=== PATIENT | male | born 1965 | race Asian ===

== ENCOUNTER 2016-12-24 17:41 | Emergency (ER) | payer OTHER ==
[~2016-12-24] VITALS: Ht 170.2 cm; Wt 84.1 kg
[~2016-12-24 17:41] MED LIST: ASPI81 PO; ATOR40TA28 PO; CLOP75 PO; LISI-661 PO; METF500T4 PO; METO-323 PO; RANO500T3 PO; TICA60TA PO
[2016-12-24 18:02] LABS: GLUCOSE,POINT OF CARE 180 MG/DL (70-110)
[2016-12-24 20:29] LABS: APPEARANCE,URINE TURBID (CLEAR); GLUCOSE, URINE (UA) 250 mg/dL (NEGATIVE); KETONES,URINE NEGATIVE (NEGATIVE); LEUKOCYTE ESTERASE ,URINE LARGE (NEGATIVE); OCCULT BLOOD,URINE MODERATE (NEGATIVE); PROTEIN,URINE POS 1+ (NEGATIVE)
[2016-12-24 20:48] LABS: ADD UA MICROSCOPIC YES
[2016-12-24 21:00] LABS: SQUAMOUS EPITHELIAL CELL,UR Moderate /LPF (None Seen); WBC,URINE 51-100 /HPF (0-5)
[2016-12-24 21:08] VITALS: BP 121/81
[2016-12-25 23:09] LABS: GC DNA N.A. AMPLIFY Negative (Negative)
== END 2016-12-24 21:52 | disposition home or self-care (01) ==
LOC: EMS 17:42
DX: N34.2 Other urethritis (principal); E78.00 Pure hypercholesterolemia, unspecified; E11.9 Type 2 diabetes mellitus without complications; I25.2 Old myocardial infarction; I25.10 Atherosclerotic heart disease of native coronary artery without angina pectoris; F17.210 Nicotine dependence, cigarettes, uncomplicated; Z95.0 Presence of cardiac pacemaker; Z95.1 Presence of aortocoronary bypass graft
CPT/HCPCS: 82962; 87086; 87491; 87591; 99284

== ENCOUNTER 2017-01-27 13:00 | Emergency (ER) | payer OTHER ==
[~2017-01-27] VITALS: Ht 165.1 cm; Wt 87.3 kg
[~2017-01-27 13:00] MED LIST changes: -ATOR40TA28 PO; -CLOP75 PO; -LISI-661 PO; -METF500T4 PO; -METO-323 PO; -RANO500T3 PO
[2017-01-27 13:37] LABS: GLUCOSE,POINT OF CARE 212 MG/DL (70-110)
[2017-01-27] MEDS ORDERED: TAMSULOSIN HCL 0.4 MG CAPSULE PO ONE (14:30)
[2017-01-27 14:50] VITALS: BP 136/95
[2017-01-27] MEDS ORDERED: CIPROFLOXACIN HCL 250 MG TABLET PO ONE (15:30)
[2017-01-27 15:58] LABS: GLUCOSE, URINE (UA) NEGATIVE (NEGATIVE); PROTEIN,URINE POS 1+ (NEGATIVE)
[2017-01-27 15:59] LABS: KETONES,URINE NEGATIVE (NEGATIVE); LEUKOCYTE ESTERASE ,URINE LARGE (NEGATIVE)
[2017-01-27 16:00] LABS: ADD UA MICROSCOPIC YES; APPEARANCE,URINE CLOUDY (CLEAR); OCCULT BLOOD,URINE MODERATE (NEGATIVE); SQUAMOUS EPITHELIAL CELL,UR Few /LPF (None Seen); WBC,URINE >100 /HPF (0-5)
== END 2017-01-27 15:28 | disposition home or self-care (01) ==
LOC: EMS 13:01
DX: N39.0 Urinary tract infection, site not specified (principal); N40.0 Benign prostatic hyperplasia without lower urinary tract symptoms; I10 Essential (primary) hypertension; I25.2 Old myocardial infarction; I25.10 Atherosclerotic heart disease of native coronary artery without angina pectoris; E78.00 Pure hypercholesterolemia, unspecified; E11.9 Type 2 diabetes mellitus without complications; F15.90 Other stimulant use, unspecified, uncomplicated; F17.210 Nicotine dependence, cigarettes, uncomplicated; Z95.0 Presence of cardiac pacemaker; Z95.1 Presence of aortocoronary bypass graft; Z79.82 Long term (current) use of aspirin
CPT/HCPCS: 82962; 87086; 99284

== ENCOUNTER 2017-02-11 03:16 | Emergency (ER) | payer OTHER ==
[~2017-02-11] VITALS: Ht 165.1 cm; Wt 84.0 kg
[2017-02-11] MEDS ORDERED: CIPR-278 PO (03:27)
[2017-02-11] MEDS ORDERED: TICA90TA PO (03:27)
[2017-02-11] MEDS ORDERED: TAMS0.4C32 PO (03:27)
[2017-02-11] MEDS ORDERED: TAMSULOSIN HCL 0.4 MG CAPSULE PO ONE (04:15)
[2017-02-11 06:04] LABS: APPEARANCE,URINE CLOUDY (CLEAR); GLUCOSE, URINE (UA) 100 mg/dL (NEGATIVE); KETONES,URINE NEGATIVE (NEGATIVE); LEUKOCYTE ESTERASE ,URINE TRACE (NEGATIVE); OCCULT BLOOD,URINE LARGE (NEGATIVE); PROTEIN,URINE SEE CONFIRM (NEGATIVE)
[2017-02-11 06:10] LABS: ADD UA MICROSCOPIC YES; SULFOSALICYLIC ACID,URINE 2+ (Negative); WBC,URINE 0-2 /HPF (0-5)
[2017-02-11 06:11] LABS: SQUAMOUS EPITHELIAL CELL,UR Moderate /LPF (None Seen)
[2017-02-11 06:18] VITALS: BP 140/87
== END 2017-02-11 06:31 | disposition home or self-care (01) ==
LOC: EMS 03:16
DX: N39.0 Urinary tract infection, site not specified (principal); F17.210 Nicotine dependence, cigarettes, uncomplicated; E11.9 Type 2 diabetes mellitus without complications; E78.00 Pure hypercholesterolemia, unspecified; I10 Essential (primary) hypertension; I25.2 Old myocardial infarction; I25.10 Atherosclerotic heart disease of native coronary artery without angina pectoris; F19.90 Other psychoactive substance use, unspecified, uncomplicated; Z95.0 Presence of cardiac pacemaker; Z95.1 Presence of aortocoronary bypass graft
CPT/HCPCS: 99283; 99406

== ENCOUNTER 2017-05-29 03:52 | Inpatient (IN) | payer OTHER ==
[~2017-05-29] VITALS: Ht 167.6 cm; Wt 83.1 kg
[~2017-05-29 03:52] MED LIST changes: +CIPR-278 PO; +TAMS0.4C32 PO; -TICA60TA PO; +TICA90TA PO
[2017-05-29 04:18] LABS: GLUCOSE,POINT OF CARE 178 MG/DL (70-110)
[2017-05-29] MEDS ORDERED: MORPHINE SULFATE 4 MG/ML SYRINGE IM ONE (04:45)
[2017-05-29] MEDS ORDERED: ONDANSETRON HCL 4 MG/2 ML VIAL IM ONE (04:45)
[2017-05-29] MEDS ORDERED: TAMSULOSIN HCL 0.4 MG CAPSULE PO ONE (04:45)
[2017-05-29 05:42] LABS: APPEARANCE,URINE CLOUDY (CLEAR); GLUCOSE, URINE (UA) NEGATIVE (NEGATIVE); KETONES,URINE NEGATIVE (NEGATIVE); LEUKOCYTE ESTERASE ,URINE SMALL (NEGATIVE); OCCULT BLOOD,URINE TRACE (NEGATIVE); PROTEIN,URINE TRACE (NEGATIVE)
[2017-05-29 05:43] LABS: ADD UA MICROSCOPIC YES
[2017-05-29 05:45] LABS: BASOPHILS % (AUTO) 0.3 % (0.0-2.0); EOSINOPHILS % (AUTO) 1.7 % (1.0-6.0); HEMATOCRIT 42.6 % (41-53); HEMOGLOBIN 14.4 g/dL (13.5-17.5); LYMPHOCYTES # (AUTO) 0.9 K/uL (1.0-4.8); LYMPHOCYTES % (AUTO) 9.7 % (22.0-44.0); MEAN CORPUSCULAR HEMOGLOBIN 29.3 pg (26.0-34.0); MEAN CORPUSCULAR HGB CONC 33.9 G/dL (31.0-37.0); MEAN CORPUSCULAR VOLUME 86 fL (80-100); MONOCYTES # (AUTO) 0.5 K/uL (0.1-1.0); MONOCYTES % (AUTO) 4.9 % (2.0-9.0); NEUTROPHILS # (AUTO) 7.8 K/uL (1.8-7.7); NEUTROPHILS % (AUTO) 83.4 % (40.0-70.0); PLATELET COUNT (AUTO) 297 K/uL (150-450); RED BLOOD CELL COUNT(AUTO) 4.93 MIL/uL (4.50-5.90); RED CELL DISTRIBUTION WIDTH 14.6 % (11.5-14.5); WHITE BLOOD COUNT (AUTO) 9.4 K/uL (4.5-11.0)
[2017-05-29 05:58] LABS: RBC,URINE 0-2 /HPF (0-2); SQUAMOUS EPITHELIAL CELL,UR Few /LPF (None Seen)
[2017-05-29 05:59] LABS: ANION GAP 10 mmol/L (8-16); CALCIUM, TOTAL 9.1 mg/dL (8.8-10.5); CARBON DIOXIDE 25 mmol/L (22-29); CHLORIDE 102 mmol/L (98-107); CREATININE 1.07 mg/dL (0.60-1.30); GLOMERULAR FILTR. RATE CALC > 60 mL/min (>60); POTASSIUM 4.1 mmol/L (3.5-5.1); SODIUM SERUM 137 mmol/L (136-145); UREA NITROGEN, BLOOD 17 mg/dL (7-18)
[2017-05-29] MEDS ORDERED: CefTRIAXone 1 GM/DEXTROSE 50 ML IV ONE (06:00)
[2017-05-29 06:05] LABS: ALANINE AMINOTRANSFERASE 30 U/L (12-78); ALBUMIN 3.6 g/dL (3.4-5.0); ASPARTATE AMINOTRANSFERASE 19 U/L (15-37); BILIRUBIN,TOTAL 0.5 mg/dL (0.1-1.0); TOTAL PROTEIN, SERUM 8.4 g/dL (6.4-8.2)
[2017-05-29 07:05] VITALS: BP 96/55
[2017-05-29] MEDS ORDERED: MAGNESIUM HYDROXIDE SUSPENSION 30 ML UDCUP PO PRN (08:15)
[2017-05-29] MEDS ORDERED: BISACODYL 10 MG RECTAL RECTAL SUPPOSITORY PR PRN (08:15)
[2017-05-29] MEDS ORDERED: HYDROCODONE/ACETAMINOPHEN 5-325 MG TABLET PO PRN (08:15)
[2017-05-29] MEDS ORDERED: ONDANSETRON HCL 4 MG/2 ML VIAL IVP PRN (08:15)
[2017-05-29] MEDS ORDERED: ZOLPIDEM TARTRATE 5 MG TABLET PO PRN (08:15)
[2017-05-29] MEDS ORDERED: ACETAMINOPHEN 325 MG TABLET PO PRN (08:15)
[2017-05-29] MEDS: DOCUSATE SODIUM 100 MG CAPSULE PO SCH ×2 (09:00→20:17)
[2017-05-29] MEDS: PANTOPRAZOLE SODIUM 40 MG DR TABLET PO SCH (09:00)
[2017-05-29] MEDS ORDERED: INFLUENZA VIRUS VACCINE QVS 2017-18 (3YR+)/PF 60 MCG/0.5 ML SYRINGE IM ONE (11:15)
[2017-05-29] MEDS ORDERED: PNEUMOCOCCAL VACCINE POLYVALENT 0.5 ML VIAL [PPSV23] IM ONE (11:15)
[2017-05-29 11:23] VITALS: BP 100/59
[2017-05-29 11:53] LABS: GLUCOSE,POINT OF CARE 133 MG/DL (70-110)
[2017-05-29] MEDS: MORPHINE SULFATE 2 MG/ML SYRINGE IVP PRN (12:35)
[2017-05-29 15:39] VITALS: BP 125/69
[2017-05-29] MEDS: HEPARIN SODIUM,PORCINE 5,000 UNITS/ML VIAL SQ SCH (15:41)
[2017-05-29] MEDS: ASPIRIN 81 MG CHEWABLE TABLET PO SCH (15:41)
[2017-05-29] MEDS: FINASTERIDE 5 MG TABLET PO SCH (18:41)
[2017-05-29 19:27] VITALS: BP 100/60
[2017-05-29 20:18] LABS: GLUCOSE,POINT OF CARE 143 MG/DL (70-110)
[2017-05-30] VITALS (7 sets, daily range): BP systolic 95–124; BP diastolic 50–79
[2017-05-30 07:05] LABS: BASOPHILS # (AUTO) 0.02 K/uL (0.00-0.20); BASOPHILS % (AUTO) 0.4 % (0.0-2.0); EOSINOPHILS # (AUTO) 0.21 K/uL (0.00-0.70); EOSINOPHILS % (AUTO) 2.96 % (1.0-6.0); HEMATOCRIT 44.7 % (41-53); HEMOGLOBIN 14.5 g/dL (13.5-17.5); LYMPHOCYTES # (AUTO) 1.7 K/uL (1.0-4.8); LYMPHOCYTES % (AUTO) 23.8 % (22.0-44.0); MEAN CORPUSCULAR HEMOGLOBIN 28.6 pg (26.0-34.0); MEAN CORPUSCULAR HGB CONC 32.5 G/dL (31.0-37.0); MEAN CORPUSCULAR VOLUME 88 fL (80-100); MONOCYTES # (AUTO) 0.6 K/uL (0.1-1.0); NEUTROPHILS # (AUTO) 4.6 K/uL (1.8-7.7); NEUTROPHILS % (AUTO) 64.9 % (40.0-70.0); PLATELET COUNT (AUTO) 282 K/uL (150-450); RED BLOOD CELL COUNT(AUTO) 5.08 MIL/uL (4.50-5.90); RED CELL DISTRIBUTION WIDTH 14.6 % (11.5-14.5); WHITE BLOOD COUNT (AUTO) 7.2 K/uL (4.5-11.0)
[2017-05-30 07:49] LABS: ALANINE AMINOTRANSFERASE 19 U/L (12-78); ALBUMIN 3.4 g/dL (3.4-5.0); ANION GAP 9 mmol/L (8-16); ASPARTATE AMINOTRANSFERASE 16 U/L (15-37); BILIRUBIN,TOTAL 0.3 mg/dL (0.1-1.0); CALCIUM, TOTAL 9.1 mg/dL (8.8-10.5); CARBON DIOXIDE 27 mmol/L (22-29); CHLORIDE 102 mmol/L (98-107); CREATININE 0.93 mg/dL (0.60-1.30); GLOMERULAR FILTR. RATE CALC > 60 mL/min (>60); POTASSIUM 4.1 mmol/L (3.5-5.1); SODIUM SERUM 138 mmol/L (136-145); TOTAL PROTEIN, SERUM 8.1 g/dL (6.4-8.2); UREA NITROGEN, BLOOD 19 mg/dL (7-18)
[2017-05-30] MEDS: HEPARIN SODIUM,PORCINE 5,000 UNITS/ML VIAL SQ SCH ×5 (07:58→23:52)
[2017-05-30] MEDS: PANTOPRAZOLE SODIUM 40 MG DR TABLET PO SCH (07:58)
[2017-05-30] MEDS: FINASTERIDE 5 MG TABLET PO SCH (07:58)
[2017-05-30] MEDS: DOCUSATE SODIUM 100 MG CAPSULE PO SCH ×2 (07:58→20:01)
[2017-05-30] MEDS: ASPIRIN 81 MG CHEWABLE TABLET PO SCH (07:58)
[2017-05-30] MEDS: TAMSULOSIN HCL 0.4 MG CAPSULE PO SCH (08:04)
[2017-05-30] MEDS: LISINOPRIL 5 MG TABLET PO SCH (09:30)
[2017-05-30] MEDS: CARVEDILOL 3.125 MG TABLET PO SCH ×2 (09:45→20:01)
[2017-05-30] MEDS ORDERED: FUROSEMIDE 20 MG TABLET PO ONE (11:45)
[2017-05-30 12:03] LABS: GLUCOSE,POINT OF CARE 134 MG/DL (70-110)
[2017-05-31 00:18] VITALS: BP 124/79
[2017-05-31 04:43] VITALS: BP 107/68
[2017-05-31 06:54] LABS: BASOPHILS % (AUTO) 0.5 % (0.0-2.0); EOSINOPHILS % (AUTO) 2.6 % (1.0-6.0); HEMATOCRIT 46.4 % (41-53); HEMOGLOBIN 15.7 g/dL (13.5-17.5); LYMPHOCYTES # (AUTO) 1.5 K/uL (1.0-4.8); LYMPHOCYTES % (AUTO) 18.4 % (22.0-44.0); MEAN CORPUSCULAR HEMOGLOBIN 29.7 pg (26.0-34.0); MEAN CORPUSCULAR HGB CONC 33.8 G/dL (31.0-37.0); MEAN CORPUSCULAR VOLUME 88 fL (80-100); MONOCYTES # (AUTO) 0.6 K/uL (0.1-1.0); MONOCYTES % (AUTO) 7.4 % (2.0-9.0); NEUTROPHILS # (AUTO) 5.9 K/uL (1.8-7.7); NEUTROPHILS % (AUTO) 71.1 % (40.0-70.0); PLATELET COUNT (AUTO) 319 K/uL (150-450); RED BLOOD CELL COUNT(AUTO) 5.27 MIL/uL (4.50-5.90); RED CELL DISTRIBUTION WIDTH 14.2 % (11.5-14.5); WHITE BLOOD COUNT (AUTO) 8.3 K/uL (4.5-11.0)
[2017-05-31 06:55] LABS: ALANINE AMINOTRANSFERASE 27 U/L (12-78); ALBUMIN 3.6 g/dL (3.4-5.0); ANION GAP 9 mmol/L (8-16); ASPARTATE AMINOTRANSFERASE 16 U/L (15-37); BILIRUBIN,TOTAL 0.5 mg/dL (0.1-1.0); CALCIUM, TOTAL 9.4 mg/dL (8.8-10.5); CARBON DIOXIDE 27 mmol/L (22-29); CHLORIDE 101 mmol/L (98-107); CREATININE 1.12 mg/dL (0.60-1.30); GLOMERULAR FILTR. RATE CALC > 60 mL/min (>60); POTASSIUM 4.3 mmol/L (3.5-5.1); SODIUM SERUM 137 mmol/L (136-145); TOTAL PROTEIN, SERUM 8.2 g/dL (6.4-8.2); UREA NITROGEN, BLOOD 20 mg/dL (7-18)
[2017-05-31 07:20] VITALS: BP 126/81
[2017-05-31] MEDS: HEPARIN SODIUM,PORCINE 5,000 UNITS/ML VIAL SQ SCH ×3 (08:00→23:55)
[2017-05-31] MEDS: CARVEDILOL 6.25 MG TABLET PO SCH ×2 (09:00→20:14)
[2017-05-31] MEDS: DOCUSATE SODIUM 100 MG CAPSULE PO SCH ×2 (09:00→20:14)
[2017-05-31] MEDS ORDERED: RINGERS SOLUTION,LACTATED 1,000 ML IV ONE ×2 (10:49→11:15)
[2017-05-31] MEDS ORDERED: WATER FOR IRRIGATION,STERILE 3,000 ML IRRIG ONE (11:42)
[2017-05-31] MEDS ORDERED: BUPIVACAINE HCL/PF 0.5% 30 ML VIAL ONE (11:42)
[2017-05-31] MEDS ORDERED: LIDOCAINE HCL/PF 1% 30 ML VIAL ONE (11:42)
[2017-05-31] MEDS ORDERED: MIDAZOLAM HCL 2 MG/2 ML VIAL IVP ONE (12:00)
[2017-05-31] MEDS ORDERED: PROPOFOL 1% 20 ML VIAL IVP ONE (12:00)
[2017-05-31] MEDS ORDERED: GLYCOPYRROLATE 0.2 MG/ML VIAL IM ONE (12:00)
[2017-05-31] MEDS ORDERED: EPINEPHrine 1:1,000 [1 MG/ML] AMP IM ONE (12:00)
[2017-05-31] MEDS ORDERED: LIDOCAINE HCL/PF 2% 5 ML VIAL INJ ONE (12:00)
[2017-05-31] MEDS ORDERED: PHENYLEPHRINE HCL 10 MG/ML VIAL IVP ONE (12:00)
[2017-05-31] MEDS ORDERED: FentaNYL CITRATE-PF 100 MCG/2 ML VIAL IVP ONE (12:00)
[2017-05-31] MEDS ORDERED: SUCCINYLCHOLINE CHLORIDE 20 MG/ML 10 ML VIAL IVP ONE (12:00)
[2017-05-31] MEDS ORDERED: CALCIUM CHLORIDE 100 MG/ML 10 ML SYRINGE IVP ONE (12:00)
[2017-05-31] MEDS ORDERED: ONDANSETRON HCL 4 MG/2 ML VIAL IVP ONE (12:00)
[2017-05-31] MEDS ORDERED: HYDROmorphone 2 MG/ML SYRINGE IVP PRN (13:00)
[2017-05-31] MEDS ORDERED: MEPERIDINE-PF 25 MG/ML SYRINGE IVP PRN (13:00)
[2017-05-31] MEDS ORDERED: FentaNYL CITRATE-PF 100 MCG/2 ML VIAL IVP PRN (13:00)
[2017-05-31] MEDS: TAMSULOSIN HCL 0.4 MG CAPSULE PO SCH (15:03)
[2017-05-31] MEDS: PANTOPRAZOLE SODIUM 40 MG DR TABLET PO SCH (15:04)
[2017-05-31] MEDS: LISINOPRIL 5 MG TABLET PO SCH (15:04)
[2017-05-31] MEDS: FINASTERIDE 5 MG TABLET PO SCH (15:04)
[2017-05-31] MEDS: OXYGEN THERAPY IH SCH ×2 (15:04→20:00)
[2017-05-31] MEDS: ASPIRIN 81 MG CHEWABLE TABLET PO SCH (15:04)
[2017-05-31 15:51] VITALS: BP 128/76
[2017-05-31 20:27] VITALS: BP 101/78
[2017-05-31 23:35] VITALS: BP 98/64
[2017-05-31] MEDS: MORPHINE SULFATE 2 MG/ML SYRINGE IVP PRN (23:57)
[2017-06-01 05:15] VITALS: BP 103/66
[2017-06-01 06:53] LABS: BASOPHILS # (AUTO) 0.04 K/uL (0.00-0.20); BASOPHILS % (AUTO) 0.4 % (0.0-2.0); EOSINOPHILS % (AUTO) 2.21 % (1.0-6.0); HEMATOCRIT 43.8 % (41-53); HEMOGLOBIN 14.4 g/dL (13.5-17.5); LYMPHOCYTES # (AUTO) 1.4 K/uL (1.0-4.8); LYMPHOCYTES % (AUTO) 15.7 % (22.0-44.0); MEAN CORPUSCULAR HEMOGLOBIN 28.8 pg (26.0-34.0); MEAN CORPUSCULAR HGB CONC 32.9 G/dL (31.0-37.0); MEAN CORPUSCULAR VOLUME 88 fL (80-100); MONOCYTES # (AUTO) 0.7 K/uL (0.1-1.0); MONOCYTES % (AUTO) 7.9 % (2.0-9.0); NEUTROPHILS # (AUTO) 6.6 K/uL (1.8-7.7); NEUTROPHILS % (AUTO) 73.8 % (40.0-70.0); PLATELET COUNT (AUTO) 276 K/uL (150-450); RED BLOOD CELL COUNT(AUTO) 4.99 MIL/uL (4.50-5.90); RED CELL DISTRIBUTION WIDTH 14.4 % (11.5-14.5); WHITE BLOOD COUNT (AUTO) 8.9 K/uL (4.5-11.0)
[2017-06-01 07:21] LABS: ALANINE AMINOTRANSFERASE 21 U/L (12-78); ALBUMIN 3.4 g/dL (3.4-5.0); ANION GAP 8 mmol/L (8-16); ASPARTATE AMINOTRANSFERASE 13 U/L (15-37); BILIRUBIN,TOTAL 0.4 mg/dL (0.1-1.0); CARBON DIOXIDE 28 mmol/L (22-29); CHLORIDE 99 mmol/L (98-107); CREATININE 1.08 mg/dL (0.60-1.30); GLOMERULAR FILTR. RATE CALC > 60 mL/min (>60); POTASSIUM 4.3 mmol/L (3.5-5.1); SODIUM SERUM 135 mmol/L (136-145); TOTAL PROTEIN, SERUM 8.1 g/dL (6.4-8.2); UREA NITROGEN, BLOOD 24 mg/dL (7-18)
[2017-06-01 07:29] VITALS: BP 109/71
[2017-06-01] MEDS: OXYGEN THERAPY IH SCH (08:00)
[2017-06-01] MEDS: HEPARIN SODIUM,PORCINE 5,000 UNITS/ML VIAL SQ SCH ×2 (08:00→16:00)
[2017-06-01] MEDS: CARVEDILOL 6.25 MG TABLET PO SCH (09:35)
[2017-06-01] MEDS: TAMSULOSIN HCL 0.4 MG CAPSULE PO SCH (09:35)
[2017-06-01] MEDS: ASPIRIN 81 MG CHEWABLE TABLET PO SCH (09:35)
[2017-06-01] MEDS: FINASTERIDE 5 MG TABLET PO SCH (09:35)
[2017-06-01] MEDS: DOCUSATE SODIUM 100 MG CAPSULE PO SCH (09:35)
[2017-06-01] MEDS: LISINOPRIL 5 MG TABLET PO SCH (09:35)
[2017-06-01] MEDS: PANTOPRAZOLE SODIUM 40 MG DR TABLET PO SCH (09:36)
[2017-06-01 11:07] VITALS: BP 96/60
[2017-06-01 15:16] VITALS: BP 97/58
[2017-06-01] MEDS ORDERED: CARV6.2579 PO (16:22)
[2017-06-01] MEDS ORDERED: LISI-660 PO (16:23)
[2017-06-01] MEDS ORDERED: FINA5TAB41 PO (16:24)
[2017-06-01] MEDS ORDERED: CARVEDILOL 3.125 MG TABLET PO SCH (21:00)
== END 2017-06-01 18:26 | disposition home or self-care (01) | DRG 446 ==
LOC: EMS 03:54 → 6N 05:30 → 5N 05-30 14:42
PROVIDERS: ADMIT Internal Medicine; ATTEND Internal Medicine
PROC: 0T7D8ZZ Dilation of Urethra, Via Natural or Artificial Opening Endoscopic (ICD-10-PCS; 2017-05-31)
PROC: 0VTTXZZ Resection of Prepuce, External Approach (ICD-10-PCS; 2017-05-31)
PROC: 0TND0ZZ Release Urethra, Open Approach (ICD-10-PCS; principal; 2017-05-31 12:30)
DX: N35.9 Urethral stricture, unspecified (principal); I11.0 Hypertensive heart disease with heart failure; I50.22 Chronic systolic (congestive) heart failure; N47.1 Phimosis; I49.5 Sick sinus syndrome; I25.10 Atherosclerotic heart disease of native coronary artery without angina pectoris; Z95.0 Presence of cardiac pacemaker; N48.1 Balanitis; E78.00 Pure hypercholesterolemia, unspecified; E11.9 Type 2 diabetes mellitus without complications; N40.1 Benign prostatic hyperplasia with lower urinary tract symptoms; R33.8 Other retention of urine; F15.10 Other stimulant abuse, uncomplicated; F17.210 Nicotine dependence, cigarettes, uncomplicated; E78.5 Hyperlipidemia, unspecified; Z80.9 Family history of malignant neoplasm, unspecified; N47.8 Other disorders of prepuce; I25.2 Old myocardial infarction; Z87.440 Personal history of urinary (tract) infections; Z95.1 Presence of aortocoronary bypass graft; Z95.5 Presence of coronary angioplasty implant and graft; Z79.899 Other long term (current) drug therapy; Z79.82 Long term (current) use of aspirin; Z28.21 Immunization not carried out because of patient refusal
CPT/HCPCS: 51702; 80307; 82962; 83735; 87086; 87147; 88304; 93005; 93306; 96365; 96372; 99285; J0171; J0330; J0690; J0696; J1644; J2250; J2270; J2370; J2405; J2704; J3010; J3490; J7120

== ENCOUNTER 2017-07-22 14:47 | Emergency (ER) | payer SELFPAY ==
[~2017-07-22] VITALS: Ht 165.1 cm; Wt 79.5 kg
[~2017-07-22 14:47] MED LIST changes: +CARV6.2579 PO; -CIPR-278 PO; +FINA5TAB41 PO; +LISI-660 PO
[2017-07-22 16:18] LABS: APPEARANCE,URINE TURBID (CLEAR); BILIRUBIN,URINE NEGATIVE (NEGATIVE); GLUCOSE, URINE (UA) NEGATIVE (NEGATIVE); KETONES,URINE NEGATIVE (NEGATIVE); LEUKOCYTE ESTERASE ,URINE MODERATE (NEGATIVE); NITRATE,URINE NEGATIVE (NEGATIVE); OCCULT BLOOD,URINE MODERATE (NEGATIVE); PROTEIN,URINE SEE CONFIRM (NEGATIVE)
[2017-07-22 16:25] LABS: SULFOSALICYLIC ACID,URINE Trace (Negative)
[2017-07-22 16:27] LABS: BACTERIA,URINE Many /HPF (None Seen); SQUAMOUS EPITHELIAL CELL,UR Few /LPF (None Seen); WBC,URINE 26-50 /HPF (0-5)
[2017-07-22 16:28] LABS: TRIPLE PHOSPHATE CRYSTAL,UR Moderate /LPF (None Seen)
[2017-07-22] MEDS ORDERED: TAMSULOSIN HCL 0.4 MG CAPSULE PO ONE (19:30)
[2017-07-22] MEDS ORDERED: CIPROFLOXACIN HCL 250 MG TABLET PO ONE (19:30)
[2017-07-22 21:23] VITALS: BP 121/81
== END 2017-07-22 21:26 | disposition home or self-care (01) ==
LOC: EMS 14:48
DX: T83.011A Breakdown (mechanical) of indwelling urethral catheter, initial encounter (principal); N39.0 Urinary tract infection, site not specified; I10 Essential (primary) hypertension; E78.00 Pure hypercholesterolemia, unspecified; E11.9 Type 2 diabetes mellitus without complications; I25.10 Atherosclerotic heart disease of native coronary artery without angina pectoris; F15.90 Other stimulant use, unspecified, uncomplicated; F17.210 Nicotine dependence, cigarettes, uncomplicated
CPT/HCPCS: 51705; 87086; 99284

== ENCOUNTER 2017-09-08 17:56 | Emergency (ER) | payer SELFPAY ==
[~2017-09-08] VITALS: Ht 165.1 cm; Wt 75.0 kg
[2017-09-08 18:53] LABS: EOSINOPHILS % (AUTO) 5.1 % (1.0-6.0); HEMATOCRIT 41.1 % (41-53); HEMOGLOBIN 14.1 g/dL (13.5-17.5); LYMPHOCYTES # (AUTO) 1.5 K/uL (1.0-4.8); LYMPHOCYTES % (AUTO) 16.3 % (22.0-44.0); MEAN CORPUSCULAR HEMOGLOBIN 29.9 pg (26.0-34.0); MEAN CORPUSCULAR HGB CONC 34.4 G/dL (31.0-37.0); MEAN CORPUSCULAR VOLUME 87 fL (80-100); MONOCYTES # (AUTO) 0.6 K/uL (0.1-1.0); MONOCYTES % (AUTO) 6.7 % (2.0-9.0); NEUTROPHILS # (AUTO) 6.5 K/uL (1.8-7.7); NEUTROPHILS % (AUTO) 70.9 % (40.0-70.0); PLATELET COUNT (AUTO) 292 K/uL (150-450); RED BLOOD CELL COUNT(AUTO) 4.72 MIL/uL (4.50-5.90); RED CELL DISTRIBUTION WIDTH 15.4 % (11.5-14.5)
[2017-09-08 19:08] LABS: ANION GAP 12 mmol/L (8-16); CALCIUM, TOTAL 8.4 mg/dL (8.8-10.5); CARBON DIOXIDE 24 mmol/L (22-29); CHLORIDE 103 mmol/L (98-107); CREATININE 0.95 mg/dL (0.60-1.30); GLOMERULAR FILTR. RATE CALC > 60 mL/min (>60); GLUCOSE,RANDOM 140 mg/dL (70-110); POTASSIUM 3.9 mmol/L (3.5-5.1); SODIUM SERUM 139 mmol/L (136-145); UREA NITROGEN, BLOOD 17 mg/dL (7-18)
[2017-09-08 19:13] LABS: ALANINE AMINOTRANSFERASE 26 U/L (12-78); ALBUMIN 3.6 g/dL (3.4-5.0); ALKALINE PHOSPHATASE 97 U/L (46-116); BILIRUBIN,TOTAL 0.3 mg/dL (0.1-1.0); LIPASE 82 U/L (73-393); TOTAL PROTEIN, SERUM 7.9 g/dL (6.4-8.2)
[2017-09-08] MEDS ORDERED: TICAGRELOR 90 MG TABLET PO ONE (19:15)
[2017-09-08 19:20] LABS: B-TYPE NATRIURETIC PEPTIDE 254 pg/mL (0-100)
[2017-09-08 19:32] LABS: ASPARTATE AMINOTRANSFERASE 23 U/L (15-37)
[2017-09-08 22:13] LABS: GLUCOSE,POINT OF CARE 110 MG/DL (70-110)
[2017-09-09] VITALS: BP 127/76
== END 2017-09-09 00:03 | disposition home or self-care (01) ==
LOC: EMS 17:58
DX: R07.9 Chest pain, unspecified (principal); I25.10 Atherosclerotic heart disease of native coronary artery without angina pectoris; E11.9 Type 2 diabetes mellitus without complications; E78.00 Pure hypercholesterolemia, unspecified; I10 Essential (primary) hypertension; I25.2 Old myocardial infarction; F17.210 Nicotine dependence, cigarettes, uncomplicated; F19.90 Other psychoactive substance use, unspecified, uncomplicated; Z79.82 Long term (current) use of aspirin; Z95.0 Presence of cardiac pacemaker
CPT/HCPCS: 82962; 93005; 99285

== ENCOUNTER 2018-07-30 03:45 | Emergency (ER) | payer MEDICAID ==
[~2018-07-30] VITALS: Ht 165.1 cm; Wt 86.4 kg
[2018-07-30 04:08] LABS: GLUCOSE,POINT OF CARE 91 MG/DL (70-110)
[2018-07-30 04:30] VITALS: BP 124/71
[2018-07-30] MEDS ORDERED: AMOX TR/POT CLAV 875 MG/125 MG TABLET PO ONE (04:45)
[2018-07-30] MEDS ORDERED: BACITRACIN 0.9 GM PACKET OINTMENT TP ONE (04:45)
[2018-07-30] MEDS ORDERED: FURO40 PO (21:52)
[2018-07-30] MEDS ORDERED: METF-960 PO (21:52)
[2018-07-30] MEDS ORDERED: ATOR40TA28 PO (21:52)
== END 2018-07-30 05:20 | disposition home or self-care (01) ==
LOC: EMS 03:45
DX: T83.510A Infection and inflammatory reaction due to cystostomy catheter, initial encounter (principal); E11.9 Type 2 diabetes mellitus without complications; E78.00 Pure hypercholesterolemia, unspecified; I10 Essential (primary) hypertension; I25.10 Atherosclerotic heart disease of native coronary artery without angina pectoris; I25.2 Old myocardial infarction; F17.210 Nicotine dependence, cigarettes, uncomplicated; F15.90 Other stimulant use, unspecified, uncomplicated; Z95.0 Presence of cardiac pacemaker; Z79.82 Long term (current) use of aspirin; Z79.899 Other long term (current) drug therapy; Y73.2 Prosthetic and other implants, materials and accessory gastroenterology and urology devices associated with adverse incidents

== ENCOUNTER 2018-07-30 21:41 | Emergency (ER) | payer MEDICAID ==
[~2018-07-30] VITALS: Ht 165.1 cm; Wt 75.0 kg
[2018-07-30] MEDS ORDERED: METF-960 PO (21:52)
[2018-07-30] MEDS ORDERED: ATOR40TA28 PO (21:52)
[2018-07-30] MEDS ORDERED: FURO40 PO (21:52)
[2018-07-30 21:59] LABS: GLUCOSE,POINT OF CARE 114 MG/DL (70-110)
[2018-07-30 22:25] VITALS: BP 113/62
[2018-07-30] MEDS ORDERED: NAPROXEN 250 MG TABLET PO ONE (23:15)
== END 2018-07-30 23:25 | disposition home or self-care (01) ==
LOC: EMS 21:42
DX: M79.601 Pain in right arm (principal); E78.00 Pure hypercholesterolemia, unspecified; E11.9 Type 2 diabetes mellitus without complications; I25.10 Atherosclerotic heart disease of native coronary artery without angina pectoris; I10 Essential (primary) hypertension; I25.2 Old myocardial infarction; F17.210 Nicotine dependence, cigarettes, uncomplicated; F15.90 Other stimulant use, unspecified, uncomplicated; Z95.0 Presence of cardiac pacemaker; Z79.899 Other long term (current) drug therapy; Z79.82 Long term (current) use of aspirin; Z79.84 Long term (current) use of oral hypoglycemic drugs
CPT/HCPCS: 93005

== ENCOUNTER 2018-10-24 06:14 | Emergency (ER) | payer MEDICAID, OTHER ==
[~2018-10-24] VITALS: Ht 165.1 cm; Wt 75.0 kg
[~2018-10-24 06:14] MED LIST changes: +ATOR40TA28 PO; -FINA5TAB41 PO; +FURO40 PO; -LISI-660 PO; +METF-960 PO; -TAMS0.4C32 PO; -TICA90TA PO
[2018-10-24] MEDS ORDERED: IODIXANOL 320 MG/ML 50 ML VIAL ONE (10:25)
[2018-10-24] MEDS ORDERED: LIDOCAINE/PF 1% 5 ML VIAL ONE (10:26)
[2018-10-24] MEDS ORDERED: LEVOFLOXACIN 500 MG TABLET PO ONE (12:15)
[2018-10-24 12:30] VITALS: BP 104/54
== END 2018-10-24 12:47 | disposition home or self-care (01) ==
LOC: EMS 06:16
DX: T83.090A Other mechanical complication of cystostomy catheter, initial encounter (principal); N39.0 Urinary tract infection, site not specified; M25.561 Pain in right knee; M25.562 Pain in left knee; M25.551 Pain in right hip; M25.552 Pain in left hip; I25.10 Atherosclerotic heart disease of native coronary artery without angina pectoris; E11.9 Type 2 diabetes mellitus without complications; E78.00 Pure hypercholesterolemia, unspecified; I10 Essential (primary) hypertension; I25.2 Old myocardial infarction; F17.210 Nicotine dependence, cigarettes, uncomplicated; F19.90 Other psychoactive substance use, unspecified, uncomplicated; Z95.0 Presence of cardiac pacemaker; Z79.82 Long term (current) use of aspirin; Z79.899 Other long term (current) drug therapy; Z79.84 Long term (current) use of oral hypoglycemic drugs
CPT/HCPCS: 36245; 76000; 81002; 99244; 99284; C1769; C1887; J3490; Q9967

== ENCOUNTER 2019-01-13 10:27 | Emergency (ER) | payer OTHER ==
[~2019-01-13] VITALS: Ht 165.1 cm; Wt 75.0 kg
[2019-01-13 10:43] LABS: GLUCOSE,POINT OF CARE 140 MG/DL (70-110)
[2019-01-13 12:13] LABS: APPEARANCE,URINE TURBID (CLEAR); BILIRUBIN,URINE NEGATIVE (NEGATIVE); GLUCOSE, URINE (UA) NEGATIVE (NEGATIVE); KETONES,URINE NEGATIVE (NEGATIVE); LEUKOCYTE ESTERASE ,URINE LARGE (NEGATIVE); NITRATE,URINE POSITIVE (NEGATIVE); OCCULT BLOOD,URINE MODERATE (NEGATIVE); PROTEIN,URINE SEE CONFIRM (NEGATIVE)
[2019-01-13 12:28] LABS: SULFOSALICYLIC ACID,URINE 3+ (Negative)
[2019-01-13 12:30] LABS: BACTERIA,URINE Moderate /HPF (None Seen); SQUAMOUS EPITHELIAL CELL,UR Rare /LPF (None Seen); WBC,URINE Full Field /HPF (0-5)
[2019-01-13] MEDS ORDERED: SULFAMETHOX/TRIMETH DS 800-160 MG/TABLET PO ONE (12:30)
[2019-01-13 13:27] VITALS: BP 132/75
== END 2019-01-13 13:30 | disposition home or self-care (01) ==
LOC: EMS 10:30
DX: T83.028A Displacement of other urinary catheter, initial encounter (principal); N39.0 Urinary tract infection, site not specified; I25.10 Atherosclerotic heart disease of native coronary artery without angina pectoris; E11.9 Type 2 diabetes mellitus without complications; I10 Essential (primary) hypertension; E78.00 Pure hypercholesterolemia, unspecified; I25.2 Old myocardial infarction; Z95.0 Presence of cardiac pacemaker; Z79.84 Long term (current) use of oral hypoglycemic drugs; Z79.899 Other long term (current) drug therapy; Z79.82 Long term (current) use of aspirin
CPT/HCPCS: 87086

== ENCOUNTER 2019-01-17 23:57 | Emergency (ER) | payer OTHER ==
[~2019-01-17] VITALS: Ht 165.1 cm; Wt 75.0 kg
[2019-01-18 00:59] LABS: GLUCOSE,POINT OF CARE 173 MG/DL (70-110)
[2019-01-18 01:25] LABS: APPEARANCE,URINE TURBID (CLEAR); GLUCOSE, URINE (UA) 250 mg/dL (NEGATIVE); KETONES,URINE NEGATIVE (NEGATIVE); LEUKOCYTE ESTERASE ,URINE LARGE (NEGATIVE); NITRATE,URINE NEGATIVE (NEGATIVE); OCCULT BLOOD,URINE TRACE (NEGATIVE); PH,URINE 8.5 (5.0-8.0); PROTEIN,URINE SEE CONFIRM (NEGATIVE)
[2019-01-18 01:28] LABS: BILIRUBIN,URINE PRELIM. POSITIVE (NEGATIVE)
[2019-01-18 01:34] LABS: BACTERIA,URINE Few /HPF (None Seen); RBC,URINE 0-2 /HPF (0-2); SQUAMOUS EPITHELIAL CELL,UR Rare /LPF (None Seen); TRIPLE PHOSPHATE CRYSTAL,UR Moderate /LPF (None Seen)
[2019-01-18 01:35] LABS: SULFOSALICYLIC ACID,URINE 2+ (Negative)
[2019-01-18 03:00] VITALS: BP 116/82
== END 2019-01-18 03:49 | disposition home or self-care (01) ==
LOC: EMS 23:58
DX: T83.198A Other mechanical complication of other urinary devices and implants, initial encounter (principal); E11.9 Type 2 diabetes mellitus without complications; I10 Essential (primary) hypertension; E78.00 Pure hypercholesterolemia, unspecified; I25.2 Old myocardial infarction; I25.10 Atherosclerotic heart disease of native coronary artery without angina pectoris; Z95.0 Presence of cardiac pacemaker; Z79.899 Other long term (current) drug therapy; Z79.84 Long term (current) use of oral hypoglycemic drugs; Z79.82 Long term (current) use of aspirin
CPT/HCPCS: 87086

== ENCOUNTER 2019-01-18 20:43 | Emergency (ER) | payer OTHER ==
[~2019-01-18] VITALS: Ht 165.1 cm; Wt 75.0 kg
[2019-01-18 21:00] LABS: GLUCOSE,POINT OF CARE 114 MG/DL (70-110)
[2019-01-18 21:29] VITALS: BP 133/79
== END 2019-01-18 22:21 | disposition home or self-care (01) ==
LOC: EMS 20:45
DX: T83.511A Infection and inflammatory reaction due to indwelling urethral catheter, initial encounter (principal); N39.0 Urinary tract infection, site not specified; R31.9 Hematuria, unspecified; I10 Essential (primary) hypertension; E78.00 Pure hypercholesterolemia, unspecified; E11.9 Type 2 diabetes mellitus without complications; I25.10 Atherosclerotic heart disease of native coronary artery without angina pectoris; I25.2 Old myocardial infarction; Z79.82 Long term (current) use of aspirin

== ENCOUNTER 2019-02-08 13:54 | Emergency (ER) | payer OTHER ==
[~2019-02-08] VITALS: Ht 162.6 cm; Wt 75.0 kg
[2019-02-08 14:11] LABS: GLUCOSE,POINT OF CARE 128 MG/DL (70-110)
[2019-02-08 15:01] VITALS: BP 131/87
== END 2019-02-08 15:23 | disposition home or self-care (01) ==
LOC: EMS 13:55
DX: T83.198A Other mechanical complication of other urinary devices and implants, initial encounter (principal); F41.9 Anxiety disorder, unspecified; R00.0 Tachycardia, unspecified; I25.10 Atherosclerotic heart disease of native coronary artery without angina pectoris; E11.9 Type 2 diabetes mellitus without complications; E78.00 Pure hypercholesterolemia, unspecified; I10 Essential (primary) hypertension; I25.2 Old myocardial infarction; Z95.0 Presence of cardiac pacemaker; Z79.82 Long term (current) use of aspirin; Z79.84 Long term (current) use of oral hypoglycemic drugs; Z79.899 Other long term (current) drug therapy; Y84.6 Urinary catheterization as the cause of abnormal reaction of the patient, or of later complication, without mention of misadventure at the time of the procedure

== ENCOUNTER 2019-04-05 08:09 | Emergency (ER) | payer OTHER ==
[~2019-04-05] VITALS: Ht 165.1 cm; Wt 75.0 kg
[2019-04-05 09:40] VITALS: BP 122/82
== END 2019-04-05 09:46 | disposition home or self-care (01) ==
LOC: EMS 08:10
DX: T83.198A Other mechanical complication of other urinary devices and implants, initial encounter (principal); E11.9 Type 2 diabetes mellitus without complications; E78.00 Pure hypercholesterolemia, unspecified; I10 Essential (primary) hypertension; I25.10 Atherosclerotic heart disease of native coronary artery without angina pectoris; I25.2 Old myocardial infarction; Z95.0 Presence of cardiac pacemaker; Z98.890 Other specified postprocedural states; Y84.6 Urinary catheterization as the cause of abnormal reaction of the patient, or of later complication, without mention of misadventure at the time of the procedure

== ENCOUNTER 2019-12-11 16:13 | Emergency (ER) | payer OTHER ==
[~2019-12-11] VITALS: Ht 165.1 cm; Wt 75.0 kg
[~2019-12-11 16:13] MED LIST changes: +ASPI-728 PO; -ASPI81 PO
[2019-12-11] MEDS ORDERED: SODIUM CHLORIDE 0.9% 1,000 ML IV ONE (16:41)
[2019-12-11] MEDS ORDERED: FAMOTIDINE 10 MG/ML 2 ML VIAL IVP ONE (16:45)
[2019-12-11] MEDS ORDERED: DiphenhydrAMINE HCL 50 MG/ML VIAL IVP ONE (16:45)
[2019-12-11] MEDS ORDERED: MethylPREDNISolone SOD SUCC 125 MG/2 ML VIAL IVP ONE (16:45)
[2019-12-11] MEDS ORDERED: POTA8TAB71 PO (19:08)
[2019-12-11] MEDS ORDERED: BUME1TAB34 PO (19:08)
[2019-12-11] MEDS ORDERED: CLOP75TA32 PO (19:08)
[2019-12-11] MEDS ORDERED: LISI-660 PO (19:08)
[2019-12-11 19:25] VITALS: BP 126/80
[2019-12-18] MEDS ORDERED: SPIR25 PO (11:02)
[2019-12-18] MEDS ORDERED: TICA90TA PO (11:02)
[2019-12-18] MEDS ORDERED: ASPI-728 PO (11:02)
== END 2019-12-11 19:29 | disposition home or self-care (01) ==
LOC: EMS 16:20
DX: T78.3XXA Angioneurotic edema, initial encounter (principal); F17.210 Nicotine dependence, cigarettes, uncomplicated; I10 Essential (primary) hypertension; I25.10 Atherosclerotic heart disease of native coronary artery without angina pectoris; X58.XXXA Exposure to other specified factors, initial encounter
CPT/HCPCS: 71045; 96374; 96375; 99285; J1200; J2930; J3490; J7030

== ENCOUNTER 2019-12-26 14:15 | Emergency (ER) | payer OTHER ==
[~2019-12-26] VITALS: Ht 165.1 cm; Wt 69.1 kg
[~2019-12-26 14:15] MED LIST changes: +BUME1TAB34 PO; -FURO40 PO; +LISI-660 PO; +POTA8TAB71 PO; +SPIR25 PO; +TICA90TA PO
[2019-12-26] MEDS ORDERED: FURO40 PO (14:23)
[2019-12-26] MEDS ORDERED: ATOR40TA28 PO (14:23)
[2019-12-26] MEDS ORDERED: CARV6 PO (14:23)
[2019-12-26] MEDS ORDERED: ONDANSETRON HCL 4 MG TABLET PO ONE (15:30)
[2019-12-26 15:32] LABS: GLUCOSE,POINT OF CARE 188 MG/DL (70-110)
[2019-12-26 16:01] LABS: CALCIUM, TOTAL 9.1 mg/dL (8.8-10.5); CREATININE 1.54 mg/dL (0.60-1.30); POTASSIUM 3.7 mmol/L (3.5-5.1)
[2019-12-26 16:10] VITALS: BP 116/76
[2019-12-26 16:13] LABS: BASOPHILS % (AUTO) 0.3 % (0.0-2.0); EOSINOPHILS % (AUTO) 4.3 % (1.0-6.0); HEMATOCRIT 47.9 % (41-53); HEMOGLOBIN 15.7 g/dL (13.5-17.5); LYMPHOCYTES # (AUTO) 0.9 K/uL (1.0-4.8); LYMPHOCYTES % (AUTO) 10.8 % (22.0-44.0); MEAN CORPUSCULAR HEMOGLOBIN 27.7 pg (26.0-34.0); MEAN CORPUSCULAR HGB CONC 32.9 G/dL (31.0-37.0); MEAN CORPUSCULAR VOLUME 84 fL (80-100); MONOCYTES # (AUTO) 0.4 K/uL (0.1-1.0); MONOCYTES % (AUTO) 4.4 % (2.0-9.0); NEUTROPHILS # (AUTO) 6.9 K/uL (1.8-7.7); NEUTROPHILS % (AUTO) 80.2 % (40.0-70.0); PLATELET COUNT (AUTO) 298 K/uL (150-450); RED BLOOD CELL COUNT(AUTO) 5.68 MIL/uL (4.50-5.90); RED CELL DISTRIBUTION WIDTH 18.3 % (11.5-14.5)
== END 2019-12-26 16:35 | disposition home or self-care (01) ==
LOC: EMS 14:16
DX: R11.0 Nausea (principal); R63.0 Anorexia; I11.0 Hypertensive heart disease with heart failure; I50.9 Heart failure, unspecified; I25.2 Old myocardial infarction; I25.10 Atherosclerotic heart disease of native coronary artery without angina pectoris; E11.9 Type 2 diabetes mellitus without complications; Z87.891 Personal history of nicotine dependence; Z79.84 Long term (current) use of oral hypoglycemic drugs; Z79.899 Other long term (current) drug therapy
CPT/HCPCS: 36415; 80048; 82962; 84484; 85025; 93005; 99284; Q0162; 82948

== ENCOUNTER 2019-12-27 23:50 | Emergency (ER) | payer OTHER ==
[~2019-12-27] VITALS: Ht 165.1 cm; Wt 72.7 kg
[~2019-12-27 23:50] MED LIST changes: -BUME1TAB34 PO; +CARV6 PO; -CARV6.2579 PO; +FURO40 PO; -POTA8TAB71 PO; -SPIR25 PO; -TICA90TA PO
[2019-12-28 02:28] VITALS: BP 122/70
[2019-12-29] MEDS ORDERED: TICA60TA PO (18:11)
== END 2019-12-28 02:28 | disposition home or self-care (01) ==
LOC: EMS 23:50
DX: E11.65 Type 2 diabetes mellitus with hyperglycemia (principal); I50.9 Heart failure, unspecified; I11.0 Hypertensive heart disease with heart failure; I25.2 Old myocardial infarction; I25.10 Atherosclerotic heart disease of native coronary artery without angina pectoris; Z87.891 Personal history of nicotine dependence

== ENCOUNTER 2019-12-29 17:58 | Emergency (ER) | payer OTHER ==
[~2019-12-29] VITALS: Ht 160 cm; Wt 53.6 kg
[2019-12-29] MEDS ORDERED: TICA60TA PO (18:11)
[2019-12-29] MEDS: ASPIRIN 81 MG CHEWABLE TABLET PO ONE (19:08)
[2019-12-29 19:48] LABS: BASOPHILS % (AUTO) 0.3 % (0.0-2.0); EOSINOPHILS % (AUTO) 4.3 % (1.0-6.0); HEMATOCRIT 45.8 % (41-53); HEMOGLOBIN 14.9 g/dL (13.5-17.5); LYMPHOCYTES # (AUTO) 0.8 K/uL (1.0-4.8); MEAN CORPUSCULAR HEMOGLOBIN 27.2 pg (26.0-34.0); MEAN CORPUSCULAR HGB CONC 32.5 G/dL (31.0-37.0); MEAN CORPUSCULAR VOLUME 84 fL (80-100); MONOCYTES # (AUTO) 0.5 K/uL (0.1-1.0); MONOCYTES % (AUTO) 8.6 % (2.0-9.0); NEUTROPHILS # (AUTO) 4.5 K/uL (1.8-7.7); NEUTROPHILS % (AUTO) 73.8 % (40.0-70.0); PLATELET COUNT (AUTO) 261 K/uL (150-450); RED BLOOD CELL COUNT(AUTO) 5.47 MIL/uL (4.50-5.90); RED CELL DISTRIBUTION WIDTH 17.7 % (11.5-14.5)
[2019-12-29 20:06] LABS: PROTHROMBIN TIME 9.9 SEC (9.4-11.6)
[2019-12-29 20:28] LABS: CALCIUM, TOTAL 9.6 mg/dL (8.8-10.5); CREATININE 1.25 mg/dL (0.60-1.30); POTASSIUM 3.6 mmol/L (3.5-5.1)
[2019-12-29 20:34] LABS: ALBUMIN 4.1 g/dL (3.4-5.0); BILIRUBIN,TOTAL 0.8 mg/dL (0.1-1.0); TOTAL PROTEIN, SERUM 9.2 g/dL (6.4-8.2)
[2019-12-29] MEDS ORDERED: 0.9% SODIUM CHLORIDE 10 ML SYRINGE IVP PRN (21:00)
[2019-12-29 21:24] VITALS: BP 102/68
[2019-12-30 02:57] LABS: GLUCOSE,POINT OF CARE 139 MG/DL (70-110)
== END 2019-12-29 22:10 | disposition left against medical advice (07) ==
LOC: EMS 18:00
DX: I25.10 Atherosclerotic heart disease of native coronary artery without angina pectoris (principal); R07.9 Chest pain, unspecified; I11.0 Hypertensive heart disease with heart failure; I50.9 Heart failure, unspecified; E11.9 Type 2 diabetes mellitus without complications; E78.00 Pure hypercholesterolemia, unspecified; I25.2 Old myocardial infarction; Z87.891 Personal history of nicotine dependence; Z95.0 Presence of cardiac pacemaker; Z79.899 Other long term (current) drug therapy; Z79.84 Long term (current) use of oral hypoglycemic drugs
CPT/HCPCS: 93005

== ENCOUNTER 2020-01-04 06:13 | Emergency (ER) | payer OTHER ==
[~2020-01-04] VITALS: Ht 165.1 cm; Wt 72.7 kg
[~2020-01-04 06:13] MED LIST changes: +TICA60TA PO
[2020-01-04 07:28] VITALS: BP 126/68
[2020-01-04 07:45] LABS: APPEARANCE,URINE CLOUDY (CLEAR); BILIRUBIN,URINE NEGATIVE (NEGATIVE); GLUCOSE, URINE (UA) NEGATIVE (NEGATIVE); KETONES,URINE TRACE mg/dL (NEGATIVE); LEUKOCYTE ESTERASE ,URINE LARGE (NEGATIVE); NITRATE,URINE NEGATIVE (NEGATIVE); OCCULT BLOOD,URINE LARGE (NEGATIVE); PROTEIN,URINE SEE CONFIRM (NEGATIVE)
[2020-01-04 07:50] LABS: BACTERIA,URINE Moderate /HPF (None Seen); RBC,URINE Full Field /HPF (0-2); SULFOSALICYLIC ACID,URINE 3+ (Negative)
[2020-01-04 07:59] LABS: GLUCOSE,POINT OF CARE 132 MG/DL (70-110)
== END 2020-01-04 07:29 | disposition home or self-care (01) ==
LOC: EMS 06:13
DX: R31.9 Hematuria, unspecified (principal); R33.9 Retention of urine, unspecified; R35.8 Other polyuria; I25.10 Atherosclerotic heart disease of native coronary artery without angina pectoris; I11.0 Hypertensive heart disease with heart failure; I50.9 Heart failure, unspecified; E78.00 Pure hypercholesterolemia, unspecified; E11.9 Type 2 diabetes mellitus without complications; I25.2 Old myocardial infarction; Z95.0 Presence of cardiac pacemaker; Z87.891 Personal history of nicotine dependence; Z86.73 Personal history of transient ischemic attack (TIA), and cerebral infarction without residual deficits; Z79.899 Other long term (current) drug therapy; Z79.84 Long term (current) use of oral hypoglycemic drugs; Z79.82 Long term (current) use of aspirin
CPT/HCPCS: 87086

== ENCOUNTER 2020-01-07 18:34 | Emergency (ER) | payer OTHER ==
[~2020-01-07] VITALS: Ht 165.1 cm; Wt 70.5 kg
[2020-01-07] MEDS ORDERED: ONDANSETRON HCL 4 MG TABLET PO ONE (19:45)
[2020-01-07 20:30] LABS: BASOPHILS % (AUTO) 0.2 % (0.0-2.0); EOSINOPHILS % (AUTO) 3.7 % (1.0-6.0); HEMATOCRIT 46.5 % (41-53); HEMOGLOBIN 14.8 g/dL (13.5-17.5); LYMPHOCYTES # (AUTO) 1.1 K/uL (1.0-4.8); LYMPHOCYTES % (AUTO) 15.5 % (22.0-44.0); MEAN CORPUSCULAR HEMOGLOBIN 26.7 pg (26.0-34.0); MEAN CORPUSCULAR HGB CONC 31.8 G/dL (31.0-37.0); MEAN CORPUSCULAR VOLUME 84 fL (80-100); MONOCYTES # (AUTO) 0.5 K/uL (0.1-1.0); MONOCYTES % (AUTO) 6.9 % (2.0-9.0); NEUTROPHILS # (AUTO) 5.1 K/uL (1.8-7.7); NEUTROPHILS % (AUTO) 73.7 % (40.0-70.0); PLATELET COUNT (AUTO) 263 K/uL (150-450); RED BLOOD CELL COUNT(AUTO) 5.53 MIL/uL (4.50-5.90); RED CELL DISTRIBUTION WIDTH 18.2 % (11.5-14.5)
[2020-01-07 20:45] LABS: CALCIUM, TOTAL 9.4 mg/dL (8.8-10.5); CREATININE 1.55 mg/dL (0.60-1.30); POTASSIUM 4.2 mmol/L (3.5-5.1)
[2020-01-07 20:48] LABS: ALBUMIN 3.9 g/dL (3.4-5.0); BILIRUBIN,TOTAL 0.6 mg/dL (0.1-1.0); TOTAL PROTEIN, SERUM 8.7 g/dL (6.4-8.2)
[2020-01-07] MEDS ORDERED: NALOXONE HCL 1 MG/ML 2 ML SYG IVP ONE (21:30)
[2020-01-07 21:44] VITALS: BP 103/60
== END 2020-01-07 21:53 | disposition home or self-care (01) ==
LOC: EMS 18:34
DX: R94.4 Abnormal results of kidney function studies (principal); R11.0 Nausea; K59.00 Constipation, unspecified; I25.10 Atherosclerotic heart disease of native coronary artery without angina pectoris; I11.0 Hypertensive heart disease with heart failure; I50.9 Heart failure, unspecified; I25.2 Old myocardial infarction; Z95.0 Presence of cardiac pacemaker; Z87.891 Personal history of nicotine dependence; Z86.73 Personal history of transient ischemic attack (TIA), and cerebral infarction without residual deficits; Z79.899 Other long term (current) drug therapy; Z79.84 Long term (current) use of oral hypoglycemic drugs; Z79.82 Long term (current) use of aspirin
CPT/HCPCS: 36415; 74022; 80053; 83690; 84484; 85025; 93005; 99285; Q0162

== ENCOUNTER 2020-01-11 19:31 | Emergency (ER) | payer OTHER ==
[~2020-01-11] VITALS: Ht 165.1 cm; Wt 70.5 kg
[~2020-01-11 19:31] MED LIST changes: +CEPH-582 PO
[2020-01-11] MEDS ORDERED: IBUPROFEN 400 MG TABLET PO ONE (23:45)
[2020-01-12 01:10] VITALS: BP 107/59
== END 2020-01-12 01:28 | disposition home or self-care (01) ==
LOC: EMS 19:31
DX: R25.2 Cramp and spasm (principal); M79.671 Pain in right foot; I25.10 Atherosclerotic heart disease of native coronary artery without angina pectoris; I11.0 Hypertensive heart disease with heart failure; I50.9 Heart failure, unspecified; E78.00 Pure hypercholesterolemia, unspecified; E11.9 Type 2 diabetes mellitus without complications; Z87.891 Personal history of nicotine dependence; Z95.0 Presence of cardiac pacemaker; Z86.73 Personal history of transient ischemic attack (TIA), and cerebral infarction without residual deficits; Z79.899 Other long term (current) drug therapy
CPT/HCPCS: Z7502; Z7610

== ENCOUNTER 2020-01-13 03:09 | Emergency (ER) | payer OTHER ==
[~2020-01-13] VITALS: Ht 165.1 cm; Wt 70.5 kg
[2020-01-13 04:20] VITALS: BP 128/70
== END 2020-01-13 04:21 | disposition home or self-care (01) ==
LOC: EMS 03:09
DX: T83.018A Breakdown (mechanical) of other urinary catheter, initial encounter (principal); I25.10 Atherosclerotic heart disease of native coronary artery without angina pectoris; I11.0 Hypertensive heart disease with heart failure; I50.9 Heart failure, unspecified; E78.00 Pure hypercholesterolemia, unspecified; Z86.73 Personal history of transient ischemic attack (TIA), and cerebral infarction without residual deficits; Z87.891 Personal history of nicotine dependence; Z95.0 Presence of cardiac pacemaker; Z79.82 Long term (current) use of aspirin; Z79.899 Other long term (current) drug therapy; Z79.84 Long term (current) use of oral hypoglycemic drugs; Y84.6 Urinary catheterization as the cause of abnormal reaction of the patient, or of later complication, without mention of misadventure at the time of the procedure
CPT/HCPCS: Z7502

== ENCOUNTER 2020-01-23 18:59 | Emergency (ER) | payer OTHER ==
[~2020-01-23] VITALS: Ht 167.6 cm; Wt 84.1 kg
[~2020-01-23 18:59] MED LIST changes: -CEPH-582 PO
[2020-01-23 19:35] VITALS: BP 106/62
== END 2020-01-23 19:42 | disposition home or self-care (01) ==
LOC: EMS 18:59
DX: I11.0 Hypertensive heart disease with heart failure (principal); Z76.0 Encounter for issue of repeat prescription; E78.5 Hyperlipidemia, unspecified; I50.9 Heart failure, unspecified; E11.9 Type 2 diabetes mellitus without complications; E78.00 Pure hypercholesterolemia, unspecified; I25.2 Old myocardial infarction; Z87.891 Personal history of nicotine dependence; Z79.82 Long term (current) use of aspirin; Z79.899 Other long term (current) drug therapy

== ENCOUNTER 2020-01-29 23:09 | Emergency (ER) | payer OTHER ==
[~2020-01-29] VITALS: Ht 165.1 cm; Wt 70.5 kg
[2020-01-30 01:48] LABS: BASOPHILS % (AUTO) 0.6 % (0.0-2.0); EOSINOPHILS % (AUTO) 4.9 % (1.0-6.0); HEMATOCRIT 39.7 % (41-53); HEMOGLOBIN 13.2 g/dL (13.5-17.5); LYMPHOCYTES # (AUTO) 1.4 K/uL (1.0-4.8); LYMPHOCYTES % (AUTO) 18.6 % (22.0-44.0); MEAN CORPUSCULAR HEMOGLOBIN 28.2 pg (26.0-34.0); MEAN CORPUSCULAR HGB CONC 33.1 G/dL (31.0-37.0); MEAN CORPUSCULAR VOLUME 85 fL (80-100); MONOCYTES # (AUTO) 0.6 K/uL (0.1-1.0); MONOCYTES % (AUTO) 7.8 % (2.0-9.0); NEUTROPHILS % (AUTO) 68.1 % (40.0-70.0); PLATELET COUNT (AUTO) 282 K/uL (150-450); RED BLOOD CELL COUNT(AUTO) 4.66 MIL/uL (4.50-5.90); RED CELL DISTRIBUTION WIDTH 19.2 % (11.5-14.5)
[2020-01-30 01:50] LABS: CALCIUM, TOTAL 9.3 mg/dL (8.8-10.5); CREATININE 1.43 mg/dL (0.60-1.30); POTASSIUM 3.9 mmol/L (3.5-5.1)
[2020-01-30 02:13] LABS: PROTHROMBIN TIME 10.3 SEC (9.4-11.6)
[2020-01-30 02:15] LABS: ALBUMIN 3.8 g/dL (3.4-5.0); BILIRUBIN,TOTAL 0.5 mg/dL (0.1-1.0); TOTAL PROTEIN, SERUM 8.3 g/dL (6.4-8.2)
[2020-01-30 02:45] VITALS: BP 117/78
[2020-01-30 07:17] LABS: GLUCOSE,POINT OF CARE 143 MG/DL (70-110)
== END 2020-01-30 03:06 | disposition home or self-care (01) ==
LOC: EMS 23:09
DX: R00.2 Palpitations (principal); I50.9 Heart failure, unspecified; I11.0 Hypertensive heart disease with heart failure; E78.00 Pure hypercholesterolemia, unspecified; I25.2 Old myocardial infarction; Z87.891 Personal history of nicotine dependence; Z79.01 Long term (current) use of anticoagulants
CPT/HCPCS: 93005; 36415-L1; 36415-TC; 71045-TC

== ENCOUNTER 2020-02-22 05:17 | Emergency (ER) | payer OTHER ==
[~2020-02-22] VITALS: Ht 165.1 cm; Wt 72.7 kg
[2020-02-22 07:37] LABS: BILIRUBIN,URINE NEGATIVE (NEGATIVE); GLUCOSE, URINE (UA) NEGATIVE (NEGATIVE); KETONES,URINE NEGATIVE (NEGATIVE); LEUKOCYTE ESTERASE ,URINE SMALL (NEGATIVE); NITRATE,URINE NEGATIVE (NEGATIVE); OCCULT BLOOD,URINE LARGE (NEGATIVE); PH,URINE 5.5 (5.0-8.0); PROTEIN,URINE TRACE (NEGATIVE)
[2020-02-22 07:45] LABS: APPEARANCE,URINE HAZY (CLEAR); RBC,URINE 26-50 /HPF (0-2)
[2020-02-22 07:46] LABS: BACTERIA,URINE Few /HPF (None Seen)
[2020-02-22 08:45] VITALS: BP 109/66
== END 2020-02-22 08:50 | disposition home or self-care (01) ==
LOC: EMS 05:17
DX: T83.198A Other mechanical complication of other urinary devices and implants, initial encounter (principal); R31.9 Hematuria, unspecified; I25.10 Atherosclerotic heart disease of native coronary artery without angina pectoris; I11.0 Hypertensive heart disease with heart failure; I50.9 Heart failure, unspecified; E78.00 Pure hypercholesterolemia, unspecified; E11.9 Type 2 diabetes mellitus without complications; I25.2 Old myocardial infarction; Z87.891 Personal history of nicotine dependence; Z95.0 Presence of cardiac pacemaker; Z79.899 Other long term (current) drug therapy; Z79.84 Long term (current) use of oral hypoglycemic drugs; Y84.6 Urinary catheterization as the cause of abnormal reaction of the patient, or of later complication, without mention of misadventure at the time of the procedure
CPT/HCPCS: 51701

== ENCOUNTER 2020-03-05 23:05 | Emergency (ER) | payer OTHER ==
[~2020-03-05] VITALS: Ht 165.1 cm; Wt 70.5 kg
[2020-03-06 00:24] LABS: APPEARANCE,URINE CLOUDY (CLEAR); BILIRUBIN,URINE NEGATIVE (NEGATIVE); GLUCOSE, URINE (UA) NEGATIVE (NEGATIVE); KETONES,URINE NEGATIVE (NEGATIVE); LEUKOCYTE ESTERASE ,URINE LARGE (NEGATIVE); NITRATE,URINE POSITIVE (NEGATIVE); OCCULT BLOOD,URINE LARGE (NEGATIVE); PH,URINE 7.5 (5.0-8.0); PROTEIN,URINE SEE CONFIRM (NEGATIVE); UROBILINOGEN,URINE 0.2 mg/dL (<=1.0)
[2020-03-06 00:32] LABS: SULFOSALICYLIC ACID,URINE 2+ (Negative)
[2020-03-06 00:38] LABS: BASOPHILS % (AUTO) 0.5 % (0.0-2.0); EOSINOPHILS % (AUTO) 5.1 % (1.0-6.0); HEMATOCRIT 39.7 % (41-53); HEMOGLOBIN 13.3 g/dL (13.5-17.5); LYMPHOCYTES % (AUTO) 16.3 % (22.0-44.0); MEAN CORPUSCULAR HEMOGLOBIN 29.7 pg (26.0-34.0); MEAN CORPUSCULAR HGB CONC 33.5 G/dL (31.0-37.0); MEAN CORPUSCULAR VOLUME 89 fL (80-100); MONOCYTES # (AUTO) 0.5 K/uL (0.1-1.0); MONOCYTES % (AUTO) 9.4 % (2.0-9.0); NEUTROPHILS % (AUTO) 68.7 % (40.0-70.0); PLATELET COUNT (AUTO) 290 K/uL (150-450); RED BLOOD CELL COUNT(AUTO) 4.48 MIL/uL (4.50-5.90); RED CELL DISTRIBUTION WIDTH 17.4 % (11.5-14.5)
[2020-03-06 00:43] LABS: CALCIUM, TOTAL 9.4 mg/dL (8.8-10.5); CREATININE 1.58 mg/dL (0.60-1.30); POTASSIUM 3.9 mmol/L (3.5-5.1)
[2020-03-06 00:47] LABS: AMORPHOUS SEDIMENT,UR Few /LPF (None Seen); BACTERIA,URINE Many /HPF (None Seen); RBC,URINE 51-100 /HPF (0-2); TRIPLE PHOSPHATE CRYSTAL,UR Few /LPF (None Seen); WBC,URINE 26-50 /HPF (0-5)
[2020-03-06 00:51] LABS: ALBUMIN 4.1 g/dL (3.4-5.0); BILIRUBIN,TOTAL 0.5 mg/dL (0.1-1.0); TOTAL PROTEIN, SERUM 8.6 g/dL (6.4-8.2)
[2020-03-06] MEDS ORDERED: CefTRIAXone 1 GM/DEXTROSE 50 ML IV ONE (02:30)
[2020-03-06 02:56] VITALS: BP 107/76
[2020-03-06] MEDS ORDERED: SULFAMETHOX/TRIMETH DS 800-160 MG/TABLET PO ONE (03:30)
== END 2020-03-06 03:50 | disposition home or self-care (01) ==
LOC: EDUNIT# 23:05 → EMS 23:06
DX: N39.0 Urinary tract infection, site not specified (principal); E78.00 Pure hypercholesterolemia, unspecified; I25.10 Atherosclerotic heart disease of native coronary artery without angina pectoris; I11.0 Hypertensive heart disease with heart failure; I50.9 Heart failure, unspecified
CPT/HCPCS: 36415; 80053; 81001; 83690; 85025; 87086; 96365; 99284; J0696

== ENCOUNTER 2020-03-24 07:05 | Emergency (ER) | payer OTHER ==
[~2020-03-24] VITALS: Ht 165.1 cm; Wt 70.5 kg
[2020-03-24 08:31] VITALS: BP 121/87
== END 2020-03-24 08:37 | disposition home or self-care (01) ==
LOC: EMS 07:08
DX: T83.198A Other mechanical complication of other urinary devices and implants, initial encounter (principal); I25.10 Atherosclerotic heart disease of native coronary artery without angina pectoris; I11.0 Hypertensive heart disease with heart failure; I50.9 Heart failure, unspecified; E78.00 Pure hypercholesterolemia, unspecified; I25.2 Old myocardial infarction; Z76.0 Encounter for issue of repeat prescription; Z87.891 Personal history of nicotine dependence; Z95.0 Presence of cardiac pacemaker; Z79.899 Other long term (current) drug therapy; Z79.84 Long term (current) use of oral hypoglycemic drugs; Z79.82 Long term (current) use of aspirin; Y84.6 Urinary catheterization as the cause of abnormal reaction of the patient, or of later complication, without mention of misadventure at the time of the procedure

== ENCOUNTER 2020-03-25 14:51 | Emergency (ER) | payer OTHER ==
[~2020-03-25] VITALS: Ht 165.1 cm; Wt 70.5 kg
[2020-03-25 16:20] LABS: BASOPHILS % (AUTO) 0.6 % (0.0-2.0); EOSINOPHILS % (AUTO) 5.8 % (1.0-6.0); HEMOGLOBIN 13.7 g/dL (13.5-17.5); LYMPHOCYTES # (AUTO) 1.1 K/uL (1.0-4.8); LYMPHOCYTES % (AUTO) 17.7 % (22.0-44.0); MEAN CORPUSCULAR HEMOGLOBIN 30.3 pg (26.0-34.0); MEAN CORPUSCULAR HGB CONC 33.3 G/dL (31.0-37.0); MEAN CORPUSCULAR VOLUME 91 fL (80-100); MONOCYTES # (AUTO) 0.4 K/uL (0.1-1.0); MONOCYTES % (AUTO) 6.4 % (2.0-9.0); NEUTROPHILS # (AUTO) 4.5 K/uL (1.8-7.7); NEUTROPHILS % (AUTO) 69.5 % (40.0-70.0); PLATELET COUNT (AUTO) 339 K/uL (150-450); RED CELL DISTRIBUTION WIDTH 15.3 % (11.5-14.5)
[2020-03-25 16:30] LABS: CALCIUM, TOTAL 9.1 mg/dL (8.8-10.5); CREATININE 1.5 mg/dL (0.60-1.30); POTASSIUM 4.2 mmol/L (3.5-5.1)
[2020-03-25 16:35] LABS: ALBUMIN 3.9 g/dL (3.4-5.0); BILIRUBIN,TOTAL 0.7 mg/dL (0.1-1.0); TOTAL PROTEIN, SERUM 8.5 g/dL (6.4-8.2)
[2020-03-25 17:49] VITALS: BP 111/64
== END 2020-03-25 17:49 | disposition home or self-care (01) ==
LOC: EMS 14:54
DX: R25.2 Cramp and spasm (principal); M79.661 Pain in right lower leg; I25.10 Atherosclerotic heart disease of native coronary artery without angina pectoris; I11.0 Hypertensive heart disease with heart failure; I50.9 Heart failure, unspecified; E78.00 Pure hypercholesterolemia, unspecified; E11.9 Type 2 diabetes mellitus without complications; I25.2 Old myocardial infarction; Z95.0 Presence of cardiac pacemaker; Z86.73 Personal history of transient ischemic attack (TIA), and cerebral infarction without residual deficits; Z79.899 Other long term (current) drug therapy; Z79.84 Long term (current) use of oral hypoglycemic drugs
CPT/HCPCS: 93971

== ENCOUNTER 2020-05-24 07:14 | Emergency (ER) | payer OTHER ==
[~2020-05-24] VITALS: Ht 165.1 cm; Wt 70.5 kg
[2020-05-24 08:38] LABS: APPEARANCE,URINE TURBID (CLEAR); BILIRUBIN,URINE NEGATIVE (NEGATIVE); GLUCOSE, URINE (UA) 250 mg/dL (NEGATIVE); KETONES,URINE NEGATIVE (NEGATIVE); LEUKOCYTE ESTERASE ,URINE LARGE (NEGATIVE); NITRATE,URINE POSITIVE (NEGATIVE); OCCULT BLOOD,URINE SMALL (NEGATIVE); PH,URINE 6.5 (5.0-8.0); PROTEIN,URINE SEE CONFIRM (NEGATIVE); UROBILINOGEN,URINE 0.2 mg/dL (<=1.0)
[2020-05-24 09:01] LABS: SULFOSALICYLIC ACID,URINE 3+ (Negative)
[2020-05-24 09:02] LABS: BACTERIA,URINE Many /HPF (None Seen); WBC,URINE Full Field /HPF (0-5)
[2020-05-24 09:13] VITALS: BP 159/88
== END 2020-05-24 09:17 | disposition home or self-care (01) ==
LOC: EMS 07:14
DX: T83.198A Other mechanical complication of other urinary devices and implants, initial encounter (principal); N39.0 Urinary tract infection, site not specified; I25.10 Atherosclerotic heart disease of native coronary artery without angina pectoris; I11.0 Hypertensive heart disease with heart failure; I50.9 Heart failure, unspecified; E78.00 Pure hypercholesterolemia, unspecified; I25.2 Old myocardial infarction; F17.210 Nicotine dependence, cigarettes, uncomplicated; Z76.0 Encounter for issue of repeat prescription; Z79.899 Other long term (current) drug therapy; Z79.82 Long term (current) use of aspirin; Z79.84 Long term (current) use of oral hypoglycemic drugs; Y84.6 Urinary catheterization as the cause of abnormal reaction of the patient, or of later complication, without mention of misadventure at the time of the procedure
CPT/HCPCS: 87086

== ENCOUNTER 2020-06-27 21:26 | Emergency (ER) | payer OTHER ==
[~2020-06-27] VITALS: Ht 165.1 cm; Wt 72.7 kg
[2020-06-27] MEDS ORDERED: FUROSEMIDE 20 MG TABLET PO ONE (21:45)
[2020-06-27] MEDS ORDERED: CARVEDILOL 3.125 MG TABLET PO ONE (21:45)
[2020-06-27] MEDS ORDERED: LISINOPRIL 5 MG TABLET PO ONE (21:45)
[2020-06-27] MEDS ORDERED: TICAGRELOR 90 MG TABLET PO ONE (21:45)
[2020-06-27] MEDS ORDERED: ATORVASTATIN CALCIUM 40 MG TABLET PO ONE (21:45)
[2020-06-27] MEDS ORDERED: ASPIRIN 81 MG CHEWABLE TABLET PO ONE (21:45)
[2020-06-27] MEDS ORDERED: MetFORMIN HCL 500 MG TABLET PO ONE (21:45)
[2020-06-27 23:00] VITALS: BP 135/85
== END 2020-06-27 23:23 | disposition home or self-care (01) ==
LOC: EMS 21:26
DX: E11.9 Type 2 diabetes mellitus without complications (principal); E78.00 Pure hypercholesterolemia, unspecified; I10 Essential (primary) hypertension; Z76.0 Encounter for issue of repeat prescription
CPT/HCPCS: 82948

== ENCOUNTER 2020-07-10 23:34 | Emergency (ER) | payer OTHER ==
[~2020-07-10] VITALS: Ht 165.1 cm; Wt 75.0 kg
[2020-07-11 03:59] VITALS: BP 150/80
[2020-07-11 04:05] LABS: COVID AG,FIA SOURCE NASOPHARYNGEAL
== END 2020-07-11 04:00 | disposition home or self-care (01) ==
LOC: EMS 23:38
DX: T83.198A Other mechanical complication of other urinary devices and implants, initial encounter (principal); I25.10 Atherosclerotic heart disease of native coronary artery without angina pectoris; E11.9 Type 2 diabetes mellitus without complications; E78.00 Pure hypercholesterolemia, unspecified; I11.0 Hypertensive heart disease with heart failure; I50.9 Heart failure, unspecified; I25.2 Old myocardial infarction; F17.210 Nicotine dependence, cigarettes, uncomplicated; Z20.822 Contact with and (suspected) exposure to COVID-19; Z95.0 Presence of cardiac pacemaker; Y84.6 Urinary catheterization as the cause of abnormal reaction of the patient, or of later complication, without mention of misadventure at the time of the procedure
CPT/HCPCS: 87426; 99283; C9803

== ENCOUNTER 2020-07-12 15:52 | Emergency (ER) | payer OTHER ==
[~2020-07-12] VITALS: Ht 165.1 cm; Wt 75.0 kg
[2020-07-12 16:37] LABS: GLUCOSE,POINT OF CARE 99 MG/DL (70-110)
[2020-07-12] MEDS ORDERED: CefTRIAXone SODIUM 1 GM/VIAL IM ONE (21:15)
[2020-07-12] MEDS ORDERED: LIDOCAINE/PF 1% 2 ML VIAL IM ONE (21:15)
[2020-07-12 21:29] VITALS: BP 129/77
== END 2020-07-12 21:30 | disposition home or self-care (01) ==
LOC: EMS 15:52
DX: T83.198A Other mechanical complication of other urinary devices and implants, initial encounter (principal); N39.0 Urinary tract infection, site not specified; I25.10 Atherosclerotic heart disease of native coronary artery without angina pectoris; Z79.84 Long term (current) use of oral hypoglycemic drugs; Y84.6 Urinary catheterization as the cause of abnormal reaction of the patient, or of later complication, without mention of misadventure at the time of the procedure; Y73.8 Miscellaneous gastroenterology and urology devices associated with adverse incidents, not elsewhere classified
CPT/HCPCS: 82962; 96372; 99284; J0696; J3490

== ENCOUNTER 2020-08-20 09:07 | Emergency (ER) | payer OTHER ==
[~2020-08-20] VITALS: Ht 165.1 cm; Wt 72.7 kg
[~2020-08-20 09:07] MED LIST changes: +ASPI-1450 PO; -ASPI-728 PO; -LISI-660 PO; +LISI-892 PO
[2020-08-20 09:11] VITALS: BP 129/81
[2020-08-20] MEDS ORDERED: LIDOCAINE 2% 5 ML JELLY ONE (11:56)
[2020-08-20] MEDS ORDERED: IOHEXOL 240 MG/ML 50 ML VIAL ONE (11:57)
== END 2020-08-20 13:33 | disposition home or self-care (01) ==
LOC: EMS 09:07
DX: T83.198A Other mechanical complication of other urinary devices and implants, initial encounter (principal); I25.10 Atherosclerotic heart disease of native coronary artery without angina pectoris; I11.0 Hypertensive heart disease with heart failure; I50.9 Heart failure, unspecified; E78.00 Pure hypercholesterolemia, unspecified; F17.210 Nicotine dependence, cigarettes, uncomplicated; Z76.0 Encounter for issue of repeat prescription; Z95.0 Presence of cardiac pacemaker; Z79.899 Other long term (current) drug therapy; Z79.84 Long term (current) use of oral hypoglycemic drugs; Y84.6 Urinary catheterization as the cause of abnormal reaction of the patient, or of later complication, without mention of misadventure at the time of the procedure
CPT/HCPCS: 36245; 75989; 76000; 82962; 99284; C1769; C1887; Q9966

== ENCOUNTER 2020-09-08 16:14 | Emergency (ER) | payer OTHER ==
[~2020-09-08] VITALS: Ht 165.1 cm; Wt 70.5 kg
[2020-09-08 16:45] LABS: GLUCOSE,POINT OF CARE 139 MG/DL (70-110)
[2020-09-08 18:18] VITALS: BP 129/79
== END 2020-09-08 18:24 | disposition home or self-care (01) ==
LOC: EMS 16:14
DX: T83.198A Other mechanical complication of other urinary devices and implants, initial encounter (principal); R33.9 Retention of urine, unspecified; I11.0 Hypertensive heart disease with heart failure; I50.9 Heart failure, unspecified; E78.00 Pure hypercholesterolemia, unspecified; I25.2 Old myocardial infarction; F17.210 Nicotine dependence, cigarettes, uncomplicated; Z86.73 Personal history of transient ischemic attack (TIA), and cerebral infarction without residual deficits; Z95.0 Presence of cardiac pacemaker; Z79.899 Other long term (current) drug therapy; Z79.84 Long term (current) use of oral hypoglycemic drugs; Y84.6 Urinary catheterization as the cause of abnormal reaction of the patient, or of later complication, without mention of misadventure at the time of the procedure
CPT/HCPCS: 99282

== ENCOUNTER 2020-09-09 08:29 | Emergency (ER) | payer OTHER ==
[~2020-09-09] VITALS: Ht 165.1 cm; Wt 75.0 kg
[2020-09-09 08:34] VITALS: BP 115/72
== END 2020-09-09 09:07 | disposition left against medical advice (07) ==
LOC: EMS 08:33
DX: Z43.3 Encounter for attention to colostomy (principal); Z53.21 Procedure and treatment not carried out due to patient leaving prior to being seen by health care provider

== ENCOUNTER 2020-09-13 00:35 | Emergency (ER) | payer OTHER ==
[~2020-09-13] VITALS: Ht 165.1 cm; Wt 72.7 kg
[2020-09-13] MEDS ORDERED: LIDOCAINE/PF 2% 5 ML VIAL IM ONE (00:38)
[2020-09-13] MEDS ORDERED: FentaNYL CITRATE PF 100 MCG/2 ML VIAL IVP ONE (00:38)
[2020-09-13] MEDS ORDERED: MIDAZOLAM HCL 2 MG/2 ML VIAL IVP ONE (00:38)
[2020-09-13] MEDS ORDERED: PROPOFOL 1% 20 ML VIAL IVP ONE (00:38)
[2020-09-13] MEDS ORDERED: DOCUSATE SODIUM 100 MG CAPSULE PO ONE (06:30)
[2020-09-13] MEDS ORDERED: IOHEXOL 300 MG/ML 10 ML VIAL ONE (10:36)
[2020-09-13] MEDS ORDERED: LIDOCAINE 2% 5 ML JELLY ONE (10:38)
[2020-09-13 12:40] LABS: COVID AG,FIA SOURCE NASOPHARYNGEAL
[2020-09-13] MEDS ORDERED: SODIUM CHLORIDE 0.9% 1,000 ML ONE (12:41)
[2020-09-13] MEDS ORDERED: LIDOCAINE 1%/EPI 1:200,000/PF 10 ML VIAL ONE (13:14)
[2020-09-13] MEDS ORDERED: BUPIVACAINE HCL/PF 0.25% 30 ML VIAL ONE (13:14)
[2020-09-13] MEDS ORDERED: LIDOCAINE/PF 1% 30 ML VIAL ONE (13:14)
[2020-09-13] MEDS ORDERED: IOHEXOL 240 MG/ML 20 ML VIAL ONE ×2 (13:14)
[2020-09-13] MEDS ORDERED: SODIUM CHLORIDE 0.9% 1,000 ML IV ONE (13:15)
[2020-09-13] MEDS ORDERED: TICA90TA PO (13:22)
[2020-09-13 16:30] VITALS: BP 109/66
[2020-09-16 05:39] LABS: GLUCOMETER DEV NAME(LOC) SDS.; GLUCOSE,POINT OF CARE 150 MG/DL (70-110)
== END 2020-09-13 17:02 | disposition home or self-care (01) ==
LOC: EMS 00:37
DX: T83.29XA Other mechanical complication of graft of urinary organ, initial encounter (principal); Z20.822 Contact with and (suspected) exposure to COVID-19; Y83.8 Other surgical procedures as the cause of abnormal reaction of the patient, or of later complication, without mention of misadventure at the time of the procedure; Y73.8 Miscellaneous gastroenterology and urology devices associated with adverse incidents, not elsewhere classified
CPT/HCPCS: 51705; 82962; 87426; 93005; 99285; J2250; J2704; J3010; J3490 ×2; J7030; Q9966; Q9967

== ENCOUNTER 2020-09-28 05:26 | Emergency (ER) | payer OTHER ==
[~2020-09-28] VITALS: Ht 165.1 cm; Wt 70.5 kg
[~2020-09-28 05:26] MED LIST changes: -TICA60TA PO; +TICA90TA PO
[2020-09-28] MEDS ORDERED: OxyCODONE HCL/ACETAMINOPHEN 5-325 MG TABLET PO ONE (06:45)
[2020-09-28 07:45] VITALS: BP 148/92
== END 2020-09-28 08:13 | disposition home or self-care (01) ==
LOC: EMS 05:28
DX: T83.198A Other mechanical complication of other urinary devices and implants, initial encounter (principal); I10 Essential (primary) hypertension; E78.00 Pure hypercholesterolemia, unspecified; E11.9 Type 2 diabetes mellitus without complications; I11.0 Hypertensive heart disease with heart failure; I50.9 Heart failure, unspecified; Z87.891 Personal history of nicotine dependence; Y83.8 Other surgical procedures as the cause of abnormal reaction of the patient, or of later complication, without mention of misadventure at the time of the procedure; Y82.8 Other medical devices associated with adverse incidents
CPT/HCPCS: 99284; Z7502; Z7610